=== PATIENT | female | born 1980 | race African-American/Black ===

== ENCOUNTER 2016-12-15 09:45 | Emergency (ER) | payer SELFPAY ==
[2016-12-15 09:50] VITALS: BP 142/80; BMI 39.1
[2016-12-15] MEDS ORDERED: TORADOL 60 MG VIAL IM ONE (10:10)
--- NOTE | 2016-12-15 10:13 | DR.GENAD ---
HPI - PCP Primary Care Physician: CHAPARRO - Complaint/Symptoms Chief Complaint Doctors Comments: Three days ago patient twisted her right foot , has been hurting inspite of acetamenophen 1gm today. The right lateral foot is painful associated with walking modifying factor, sharp Chief Complaint:: PT C/O LT FOOT PAIN. PT STATES SUNDAY SHE STEPPED OFF OF THE CARPORT AND INJURED IT. PT STATES IT IS NOT GETTING BETTER AND SHE NEEDS TO SEE IF SHE MAY HAVE BROKEN IT. - Source History Provided: Patient - Mode of Arrival Mode of Arrival: Ambulatory - Timing Onset of Chief Complaint: 12/12/16 PMH - PMH Past Medical History: No Past Surgical History: Yes Past Surgical History Comment: CYST REMOVAL - Family History History of Family Medical Conditions: No - Social History Does any household member use tobacco: No Alcohol Use: None Do you use any recreational Drugs:: No Lives With: Family Lives Where: Home - infectious screening In the last 2 months have you had wt loss of >10#?: NO Have you had fever, night sweats or hemotysis?: No Have you traveled outside the country in the last 6 months?: No Isolation: Standard ROS - Review of Systems Constitutional: No Symptoms Reported Eyes: No Symptoms Reported ENTM: No Symptoms Reported Respiratoy: No Symptoms Reported Cardiovascular: No Symptoms Reported Gastrointestinal/Abdominal: No Symptoms Reported Genitourinary: No Symptoms Reported Neurological: No Symptoms Reported Musculoskeletal: Foot (pain right) Integumentary: No Symptoms Reported Hematologic/Lymphatic: No Symptoms Reported Endocrine: No Symptoms Reported Psychiatric: No Symptoms Reported All Other Systems: Reviewed and Negative PE - Vital Signs Vitals: Temperature 98.4 F Pulse Rate 90 Respiratory Rate 18 Blood Pressure 142/80 O2 Sat by Pulse Oximetry 100 - General General Appearance: Alert, In No Apparent Distress - Head Head Exam: Normal Inspection, Atraumatic - Eyes Eye exam: Normal Appearance, PERRL, EOMI - ENT ENT Exam: Normal Exam External Ear Exam: Normal External Inspection TM/Canal Exam: Bilateral Normal Nose Exam: Normal Nose Exam, Sinus Tenderness Mouth Exam: Normal Inspection, Drooling Throat Exam: Normal Inspection - Neck Neck Exam: Normal Inspection - Chest Chest Inspection: Normal Inspection - Respiratory Respiratory Exam: Normal Lung Sounds Bilat Respiratory Exam: Bilateral Clear to Auscultation - Cardiovascular Cardiovascular Exam: Regular Rate, Normal Rhythm - Abdominal Exam Abdominal Exam: Normal Inspection, Normal Bowel Sounds Abdominal Tenderness: negative: RUQ, RLQ, LUQ, LLQ, Epigastrium, Suprapubic, Diffuse, Mild, Moderate, Severe, Other - Extremities Extremities Exam: Normal Inspection, Tenderness (right foot) - Back Back Exam: Normal Inspection, Full ROM - Neurologic Neurological Exam: Alert, Oriented X3, CN II-XII Intact - Psychiatric Psychiatric Exam: Normal Affect - Skin Skin Exam: Warm, Dry, Intact Course - Treatment Treatment: Ortho boot, toradol ROR - XRAY XRAY Interpreted by: Radiologist (There is a nondisplaced transverse fracture of the base of the 5th metartarsal bone) - Diagnosis Discharge Problem: Nondisplaced fracture of fifth metatarsal bone Qualifiers: Encounter type: initial encounter Fracture type: closed Laterality: right Qualified Code(s): S92.354A - Nondisplaced fracture of fifth metatarsal bone, right foot, initial encounter for closed fracture - Discharge Plan Condition: Stable - Follow ups/Referrals Follow ups/Referrals: ERICH MAYFIELD [Primary Care Provider] - 3 days - Instructions
[2016-12-15] MEDS ORDERED: TORADOL 60 MG VIAL ONE (10:14)
--- NOTE | 2016-12-15 10:28 | RAD ---
Examination: X-rays of the right foot. Clinical history: Right foot injury, rolled foot on Sunday, lateral foot pain. Technique: Three views of the right foot were obtained. Comparison: None available. Findings: There is a nondisplaced transverse fracture of the base of the 5th metatarsal bone. No additional bony or soft tissue abnormality is noted. Impression: 1. Fracture of the 5th metatarsal bone, as described above. Reported By:
== END 2016-12-15 11:14 | disposition home or self-care (01) ==
LOC: ER 09:45
DX: S92.354A Nondisplaced fracture of fifth metatarsal bone, right foot, initial encounter for closed fracture (principal); Y33.XXXA Other specified events, undetermined intent, initial encounter; Y92.9 Unspecified place or not applicable
CPT/HCPCS: 73630; 96372; 99282; J1885